=== PATIENT | female | born 1960 | race Caucasian/White ===

== ENCOUNTER → 2016-07-08 | Outpatient (CLI) | payer OTHER ==
[~2016-07-08] MED LIST: AMOX500C3 PO; CHOL100010 PO; MULT-506 PO
--- NOTE | 2016-07-08 11:02 | DIAGNOSTIC IMAGING REPORT ---
CHEST 2 VIEWS ROUTINE CLINICAL HISTORY: Acute upper respiratory infection. COMPARISON STUDY: Chest radiograph April 25, 2013. FINDINGS: Lung volumes are normal. There is no pneumothorax or pleural effusion. Pulmonary vascularity is normal. Cardiac size is normal. Mediastinal contours are within normal limits. There is no evidence of pulmonary edema. A 4 mm nodular density within the right lower lung is unchanged and reflects a calcified nodule or vessel on end. IMPRESSION: No acute cardiopulmonary findings. Electronically signed by: Darius Salinas M.D. 07/08/2016 11:00 AM Dictated Date/Time: 07/08/2016 10:59 AM
== END | disposition home or self-care (01) ==
LOC: C.RADBC 10:13
PROVIDERS: ATTEND Internal Medicine
DX: J06.9 Acute upper respiratory infection, unspecified (principal)

== ENCOUNTER → 2017-01-27 | Outpatient (CLI) | payer OTHER ==
[~2017-01-27] MED LIST changes: -AMOX500C3 PO
--- NOTE | 2017-01-27 13:52 | DIAGNOSTIC IMAGING REPORT ---
RIGHT LOWER EXT JOINT WITHOUT CLINICAL HISTORY: LOOSE BODY R KNEE Right pain TECHNIQUE: Multiaxial MRI acquisition COMPARISON STUDY: None FINDINGS: Signal characteristics the osseous structures are in general unremarkable. There is a small osteochondral defect of the central aspect of the medial femoral condyle measuring 2.8 mm at maximum. There does not, however appear to be disruption of the overlying articular services. Medial and lateral collateral ligaments are intact. There are findings of chondromalacia patella with loss of the mid patellar articulating surface. This is a loss of articular services extends over a maximum transaxial dimension of approximately 1 cm. There is no significant joint effusion. There is no significant popliteal cyst. May be 2 very small loose bodies medially posterior to the medial femoral condyle best seen on sagittal image 12. These measure approximately 2 mm respectively and are well corticated. Anterior and posterior cruciate ligaments are intact. Collateral ligaments remain unremarkable. The menisci show normal signal character and configuration laterally. Medial meniscus shows a slight degree of meniscal fibrillation at the mid to anterior aspect. A well-defined acute medial meniscal tear, however is not felt to be present. IMPRESSION: 1. Small osteochondral defect mid medial femoral condyle. 2. 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 3. Small 2 mm loose bodies posterior to the medial femoral condyle. The above report was generated using voice recognition software. It may contain grammatical, syntax or spelling errors. Electronically signed by: Lg Francisco M.D. 01/27/2017 1:51 PM Dictated Date/Time: 01/27/2017 1:39 PM
== END | disposition home or self-care (01) ==
LOC: C.MRIBC 12:52
PROVIDERS: ATTEND Orthopaedic Surgery
DX: M22.41 Chondromalacia patellae, right knee (principal); M23.41 Loose body in knee, right knee

== ENCOUNTER → 2018-01-17 | Outpatient (CLI) | payer OTHER ==
[2018-01-17 09:34] LABS: BASO % 0.7 %; BASO ABS # 0.04 K/uL (0-0.2); EOS % 1.8 %; HEMATOCRIT 41.3 % (37-47); HEMOGLOBIN 13.7 g/dL (12.0-16.0); LYMPH % 42.7 %; LYMPH ABS # 2.44 K/uL (1.2-3.4); MEAN CELL VOLUME 92.8 fL (80-100); MEAN CORPUSCULAR HEMOGLOBIN 30.8 pg (25-34); MEAN CORPUSCULAR HGB CONC 33.2 g/dl (32-36); MEAN PLATELET VOLUME 10.6 fL (7.4-10.4); MONO % 6.3 %; MONO ABS # 0.36 K/uL (0.11-0.59); NEUT % 48.5 %; NEUT ABS # 2.77 K/uL (1.4-6.5); PLATELET COUNT 252 K/uL (130-400); RED CELL DISTRIBUTION WIDTH CV 13.4 % (11.5-14.5); WHITE BLOOD COUNT 5.71 K/uL (4.8-10.8)
[2018-01-17 09:51] LABS: HEMOGLOBIN A1C 5.3 % (4.5-5.6)
[2018-01-17 10:07] LABS: ALBUMIN 3.5 gm/dl (3.4-5.0); ALKALINE PHOSPHATASE 114 U/L (45-117); ALT/SGPT 39 U/L (12-78); AST/SGOT 27 U/L (15-37); BLOOD UREA NITROGEN 14 mg/dl (7-18); CALCIUM 8.6 mg/dl (8.5-10.1); CARBON DIOXIDE 26 mmol/L (21-32); CHOLESTEROL 180 mg/dl (0-200); CREATININE 0.61 mg/dl (0.60-1.20); GLUCOSE 73 mg/dl (70-99); LDL CHOLESTEROL CALCULATED 82 mg/dl; POTASSIUM 3.8 mmol/L (3.5-5.1); SODIUM 139 mmol/L (136-145); TOTAL PROTEIN 7.3 gm/dl (6.4-8.2)
== END | disposition home or self-care (01) ==
LOC: C.LAB1850 07:16
PROVIDERS: ATTEND Physician Assistant
DX: Z00.00 Encounter for general adult medical examination without abnormal findings (principal); E55.9 Vitamin D deficiency, unspecified; Z13.220 Encounter for screening for lipoid disorders; Z13.1 Encounter for screening for diabetes mellitus; Z13.29 Encounter for screening for other suspected endocrine disorder